=== PATIENT | male | born 1985 | race Caucasian/White ===

== ENCOUNTER 2021-11-12 14:30 | Emergency (ER) | payer BC ==
[2021-11-12 14:44] VITALS: BP 115/93
[2021-11-12] MEDS ORDERED: ALLOPURINOL300 M1 PO (14:47)
== END 2021-11-12 15:32 | disposition home or self-care (01) ==
LOC: ED 14:30
DX: S93.402A Sprain of unspecified ligament of left ankle, initial encounter (principal); S80.812A Abrasion, left lower leg, initial encounter; Z28.310 Unvaccinated for COVID-19; V86.55XA Driver of 3- or 4- wheeled all-terrain vehicle (ATV) injured in nontraffic accident, initial encounter; Y92.410 Unspecified street and highway as the place of occurrence of the external cause

== ENCOUNTER → 2021-11-12 | Outpatient (CLI) | payer BC ==
[~2021-11-12] MED LIST: ALLOPURINOL300 M1 PO
== END ==
LOC: RAD 13:25
DX: S19.9XXA Unspecified injury of neck, initial encounter (principal); M25.572 Pain in left ankle and joints of left foot; M79.605 Pain in left leg

== ENCOUNTER → 2022-11-27 | Outpatient (CLI) | payer BC | LOC: RAD 09:46 | DX: M79.645 Pain in left finger(s) (principal) ==